=== PATIENT | male | born 1950 | race Caucasian/White ===

== ENCOUNTER 2017-09-25 07:50 | Day surgery (SDC) | payer OTHER ==
[~2017-09-25 07:50] MED LIST: CEFAZOLIN 1 GM INJ
[2017-09-25] MEDS ORDERED: FENTAnyl 50 MCG/ML VIAL (10:21)
[2017-09-25] MEDS ORDERED: PROPOFOL 20 ML (10:21)
[2017-09-25] MEDS ORDERED: MIDAZOLAM 1 MG/ML 2 ML INJ (10:22)
[2017-09-25] MEDS ORDERED: ONDANSETRON 4 MG INJ IV (11:00)
[2017-09-25] MEDS ORDERED: HYDROmorphONE (0.2 MG/ML) 10ML SYG IV ×3 (11:00)
[2017-09-25] MEDS ORDERED: OXYCODONE/ACETAMINOPHEN (5/325) TAB PO ×2 (11:00)
[2017-09-25] MEDS ORDERED: morphine 2 MG INJ IV (11:00)
[2017-09-25] MEDS: LIDOCAINE 1% (MPF) 30 ML INJ (14:05)
[2017-09-25] MEDS: POLYMYXIN/BACITRACIN 1L IRRIG (14:05)
== END 2017-09-25 11:55 | disposition home or self-care (01) ==
LOC: SDS 07:50
DX: Z45.010 Encounter for checking and testing of cardiac pacemaker pulse generator [battery] (principal); I25.10 Atherosclerotic heart disease of native coronary artery without angina pectoris; I48.2 Chronic atrial fibrillation; I50.32 Chronic diastolic (congestive) heart failure; I10 Essential (primary) hypertension; E66.01 Morbid (severe) obesity due to excess calories; Z68.38 Body mass index [BMI] 38.0-38.9, adult
CPT/HCPCS: 33228; 88300